=== PATIENT | male | born 1985 | race African-American/Black ===

== ENCOUNTER 2017-09-21 13:38 | Emergency (ER) | payer OTHER ==
[2017-09-21] MEDS ORDERED: Acetaminophen/oxyCODONE 325-5 MG Tab PO ONE (14:31)
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
--- NOTE | 2017-09-23 08:23 | CR ---
Left knee: Four views of the left knee were obtained. Comparison: No previous study. Minimal medial joint space narrowing is seen. Lateral joint space is preserved. No joint effusion is seen. No fracture or other bony abnormality is identified. Impression: 1. Mild medial joint space narrowing. 2. Left knee exam is otherwise unremarkable. Diagnostic code #2
== END 2017-09-21 16:30 | disposition home or self-care (01) ==
LOC: JD.ED 13:38
DX: S00.462A Insect bite (nonvenomous) of left ear, initial encounter (principal); W57.XXXA Bitten or stung by nonvenomous insect and other nonvenomous arthropods, initial encounter
CPT/HCPCS: 73564; 99284; A9270; 99283

== ENCOUNTER 2018-12-31 18:56 | Emergency (ER) | payer OTHER ==
[2018-12-31] MEDS ORDERED: Ondansetron 4 MG/2 ML SDV IVPUSH ONE (19:12)
[2018-12-31] MEDS ORDERED: Dicyclomine 10 MG Cap PO ONE (19:13)
[2018-12-31] MEDS ORDERED: Dextrose 5%-Lactated Ringers 1,000 ML IV SCH (19:15)
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
[2018-12-31] MEDS ORDERED: ClonazePAM 0.5 MG Tab PO ONE (21:40)
--- NOTE | 2019-01-05 08:48 | CR ---
Chest: Portable view of the chest was obtained. Comparison: No previous chest x-ray. Metallic densities are seen within the upper abdomen. Uncertain as to etiology and please correlate if this is known clinically. Lungs are clear. Heart size and mediastinum are normal. Bony structures are grossly intact. Impression: 1. Metallic densities within the upper abdomen as noted above. 2. Nothing acute is seen on portable chest x-ray. Diagnostic code #2
== END 2018-12-31 22:10 | disposition home or self-care (01) ==
LOC: JD.ED 18:56
DX: K52.1 Toxic gastroenteritis and colitis (principal); T43.225A Adverse effect of selective serotonin reuptake inhibitors, initial encounter; E86.9 Volume depletion, unspecified; R55 Syncope and collapse; Z88.1 Allergy status to other antibiotic agents; Z88.5 Allergy status to narcotic agent; Z90.81 Acquired absence of spleen
CPT/HCPCS: 36415; 71045; 80053; 82553; 83735; 84484; 85025; 86140; 93005; 96361; 96374; 99285; A9270; J2405; J7042; 99284

== ENCOUNTER 2019-11-06 18:44 | Emergency (ER) | payer OTHER ==
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
--- NOTE | 2019-11-08 09:37 | CR ---
Chest: PA and lateral the chest were obtained. Comparison: No previous study. Metallic densities are noted posteriorly within the upper abdomen and lower chest. Lungs are clear with no acute parenchymal change. Heart size and mediastinum are normal. Bony structures are unremarkable. Impression: 1. Metallic foreign bodies as noted above. 2. Nothing acute is seen on 2 view chest x-ray. Diagnostic code #2 This report was dictated in MDT
== END 2019-11-06 21:05 | disposition home or self-care (01) ==
LOC: JD.ED 18:44
DX: R07.89 Other chest pain (principal); Z87.891 Personal history of nicotine dependence; Z88.1 Allergy status to other antibiotic agents; Z88.5 Allergy status to narcotic agent
CPT/HCPCS: 36415; 71046; 71046-26; 80053; 83735; 83880; 84484; 85007; 85027; 85379; 93005; 99285-25